=== PATIENT | female | born 1995 | race African-American/Black ===

== ENCOUNTER 2024-10-07 18:11 | Emergency (ER) | payer MEDICAID ==
[~2024-10-07] VITALS: Ht 162.6 cm; Wt 68.0 kg
[2024-10-07 18:25] VITALS: O2SAT 100
[2024-10-07 18:26] VITALS: BP 117/68; PULSE 99; RESP 16; TEMP 100.3; O2SAT 100
== END 2024-10-07 21:57 | disposition left against medical advice (07) ==
LOC: ER 18:11
DX: R05.9 Cough, unspecified (principal); Z53.21 Procedure and treatment not carried out due to patient leaving prior to being seen by health care provider